=== PATIENT | male | born 1965 | race Caucasian/White ===

== ENCOUNTER 2022-06-18 07:38 | Emergency (ER) | payer MEDICARE ==
[~2022-06-18] VITALS: Ht 165.1 cm; Wt 53.5 kg
[2022-06-18] MEDS ORDERED: SODIUM CHLORIDE 0.9% 1000ML 1,000 ML IV STA (07:56)
[2022-06-18 08:28] LABS: BASOPHILS % 0.2 % (0.0-1.0); EOSINOPHILS % 0.9 % (0.0-6.0); HEMATOCRIT 37.4 % (38.2-49.6); LYMPHOCYTES # (AUTO) 0.4 (1.0-3.2); LYMPHOCYTES % 8.9 % (18.0-39.1); MEAN CORPUSCULAR HEMOGLOBIN 30.3 pg (28-32); MEAN CORPUSCULAR HGB CONC 32.1 g/dL (31-35); MEAN CORPUSCULAR VOLUME 94.4 fL (81-99); MONOCYTES # (AUTO) 0.6 (0.2-0.8); NEUTROPHILS # (AUTO) 3.6 (2.1-6.9); NEUTROPHILS % 77.8 % (38.7-80.0); PLATELET COUNT 222 x10e3/uL (140-360); RED BLOOD COUNT 3.96 x10e6/uL (4.3-5.7); RED CELL DISTRIBUTION WIDTH 14.2 % (11.7-14.4)
[2022-06-18 08:37] LABS: CLARITY,URINE TURBID (CLEAR); COLOR,URINE YELLOW (YELLOW)
[2022-06-18 08:38] LABS: LEUKOCYTE ESTERASE ,URINE LARGE (NEGATIVE); NITRITE,URINE NEGATIVE (NEGATIVE)
[2022-06-18 08:39] LABS: KETONES,URINE NEGATIVE (NEGATIVE); PROTEIN,URINE DIPSTICK NEGATIVE (NEGATIVE); URINE UROBILINOGEN 1 mg/dL (0.2 - 1)
[2022-06-18 08:40] LABS: BACTERIA,URINE FEW /HPF; EPITHELIAL CELLS,URINE FEW /LPF
[2022-06-18 08:44] LABS: RBC,URINE >50 /HPF (0-5); WBC,URINE (MAN) >50 /HPF (0-5)
[2022-06-18 08:47] LABS: ALBUMIN 3.6 g/dL (3.5-5.0); ALBUMIN/GLOBULIN RATIO 0.9 (0.8-2.0); ANION GAP 14.5 mmol/L (8-16); CALCIUM 9.4 mg/dL (8.4-10.2); CREATININE, SERUM 0.59 mg/dL (0.72-1.25); MAGNESIUM 1.7 MG/DL (1.3-2.1); POTASSIUM 3.5 mmol/L (3.5-5.1)
[2022-06-18 08:50] LABS: INR 0.96; PROTHROMBIN TIME 13.7 seconds (11.9-14.5)
[2022-06-18 08:51] LABS: PARTIAL THROMBOPLASTIN TIME 34.2 seconds (23.8-35.5)
[2022-06-18] MEDS ORDERED: ONDANSETRON ODT4 MG PO (11:16)
[2022-06-18] MEDS ORDERED: CEFDINIR300 MG PO (11:16)
[2022-06-18 11:20] VITALS: BP 118/83
== END 2022-06-18 11:55 | disposition home or self-care (01) ==
LOC: ER 07:42
DX: R33.9 Retention of urine, unspecified (principal); N40.1 Benign prostatic hyperplasia with lower urinary tract symptoms; R33.8 Other retention of urine; N39.0 Urinary tract infection, site not specified
CPT/HCPCS: 36415; 51702; 71045; 80053; 81001; 83605; 83735; 85025; 85610; 85730; 87040; 87086; 87186; 93005; 99284; J0696; J7030; 51700

== ENCOUNTER 2022-07-31 07:58 | Emergency (ER) | payer MEDICARE ==
[~2022-07-31] VITALS: Ht 165.1 cm; Wt 53.5 kg
[~2022-07-31 07:58] MED LIST: CEFDINIR300 MG PO; ONDANSETRON ODT4 MG PO
[2022-07-31] MEDS ORDERED: CIPRO500 MG PO (08:40)
[2022-07-31] MEDS ORDERED: HYDROCODONE/APAP 10MG-325MG TAB PO ONE (09:15)
[2022-07-31 09:26] LABS: CLARITY,URINE TURBID (CLEAR); COLOR,URINE YELLOW (YELLOW)
[2022-07-31 09:27] LABS: KETONES,URINE TRACE (NEGATIVE); LEUKOCYTE ESTERASE ,URINE LARGE (NEGATIVE); NITRITE,URINE NEGATIVE (NEGATIVE); PROTEIN,URINE DIPSTICK 2+ (NEGATIVE); URINE UROBILINOGEN 1 mg/dL (0.2 - 1)
[2022-07-31 09:50] LABS: WBC,URINE (MAN) 21-50 /HPF (0-5)
[2022-07-31 09:51] LABS: AMORPHOUS SEDIMENT,URINE FEW (FEW); BACTERIA,URINE MODERATE /HPF; EPITHELIAL CELLS,URINE FEW /LPF
== END 2022-07-31 09:25 | disposition home or self-care (01) ==
LOC: ER 08:23
DX: Z46.6 Encounter for fitting and adjustment of urinary device (principal); R33.9 Retention of urine, unspecified; N39.0 Urinary tract infection, site not specified
CPT/HCPCS: 51700; 81001; 87086; 87186; 99282

== ENCOUNTER 2022-08-08 20:07 | Emergency (ER) | payer MEDICARE ==
[~2022-08-08] VITALS: Ht 165.1 cm; Wt 52.2 kg
[~2022-08-08 20:07] MED LIST changes: +CIPRO500 MG PO
[2022-08-08] MEDS ORDERED: TRAMADOL HCL 50 MG TAB PO ONE (22:00)
[2022-08-08] MEDS ORDERED: TRAMADOL HCL 50 MG TAB ONE (22:26)
[2022-08-08 23:31] VITALS: BP 125/92
== END 2022-08-08 23:44 | disposition home or self-care (01) ==
LOC: ER 20:15
DX: R31.9 Hematuria, unspecified (principal); I10 Essential (primary) hypertension; E78.5 Hyperlipidemia, unspecified; Z89.512 Acquired absence of left leg below knee; Z85.238 Personal history of other malignant neoplasm of thymus
CPT/HCPCS: 51700; 99283

== ENCOUNTER 2022-11-04 17:47 | Emergency (ER) | payer MEDICARE ==
[~2022-11-04] VITALS: Ht 165.1 cm; Wt 52.2 kg
[2022-11-04 18:42] LABS: BASOPHILS % 0.5 % (0.0-1.0); EOSINOPHILS % 0.6 % (0.0-6.0); HEMATOCRIT 38.8 % (38.2-49.6); HEMOGLOBIN 12.7 g/dL (14.0-18.0); MEAN CORPUSCULAR HEMOGLOBIN 28.2 pg (28-32); MEAN CORPUSCULAR HGB CONC 32.7 g/dL (31-35); MEAN CORPUSCULAR VOLUME 86.2 fL (81-99); MONOCYTES # (AUTO) 0.7 (0.2-0.8); MONOCYTES % 10.8 % (4.4-11.3); NEUTROPHILS # (AUTO) 4.8 (2.1-6.9); NEUTROPHILS % 72.8 % (38.7-80.0); PLATELET COUNT 413 x10e3/uL (140-360); RED CELL DISTRIBUTION WIDTH 15.4 % (11.7-14.4)
[2022-11-04 19:00] LABS: ALBUMIN 2.9 g/dL (3.5-5.0); ALBUMIN/GLOBULIN RATIO 0.8 (0.8-2.0); ANION GAP 17.6 mmol/L (8-16); CALCIUM 9.4 mg/dL (8.4-10.2); CREATININE, SERUM 0.6 mg/dL (0.72-1.25); POTASSIUM 3.6 mmol/L (3.5-5.1)
[2022-11-04 19:06] LABS: CREATINE KINASE MB 1.2 ng/mL (0-5.0)
[2022-11-04] MEDS ORDERED: AZITHROMYCIN250 MG PO (19:42)
[2022-11-04] MEDS ORDERED: MEDROL4 M2 PO (19:42)
== END 2022-11-04 20:04 | disposition home or self-care (01) ==
LOC: ER 18:09
DX: R05.9 Cough, unspecified (principal); J40 Bronchitis, not specified as acute or chronic; I10 Essential (primary) hypertension; E78.5 Hyperlipidemia, unspecified; Z20.822 Contact with and (suspected) exposure to COVID-19; Z89.512 Acquired absence of left leg below knee; Z85.238 Personal history of other malignant neoplasm of thymus
CPT/HCPCS: 36415; 71045; 80053; 82550; 82553; 84484; 85025; 93005; 99284; U0002

== ENCOUNTER 2022-12-18 20:22 | Emergency (ER) | payer MEDICARE ==
[~2022-12-18] VITALS: Ht 165.1 cm; Wt 45.4 kg
[~2022-12-18 20:22] MED LIST changes: +AZITHROMYCIN250 MG PO; +MEDROL4 M2 PO
[2022-12-18 20:32] VITALS: O2SAT 98
[2022-12-18 20:45] LABS: CLARITY,URINE SL CLOUDY (CLEAR); COLOR,URINE ORANGE (YELLOW); KETONES,URINE NEGATIVE (NEGATIVE); LEUKOCYTE ESTERASE ,URINE SMALL (NEGATIVE); NITRITE,URINE POSITIVE (NEGATIVE); PROTEIN,URINE DIPSTICK 1+ (NEGATIVE); URINE UROBILINOGEN 2 mg/dL (0.2 - 1)
[2022-12-18 20:56] LABS: BACTERIA,URINE MODERATE /HPF; RBC,URINE 0-5 /HPF (0-5)
[2022-12-18] MEDS ORDERED: CIPRO500 MG PO (21:09)
== END 2022-12-18 21:17 | disposition home or self-care (01) ==
LOC: ER 20:25
DX: Z46.6 Encounter for fitting and adjustment of urinary device (principal); R30.0 Dysuria; N39.0 Urinary tract infection, site not specified; I10 Essential (primary) hypertension; E78.5 Hyperlipidemia, unspecified; Z85.238 Personal history of other malignant neoplasm of thymus
CPT/HCPCS: 81001; 87086; 87186; 99283